=== PATIENT | female | born 1970 | race Hispanic/Latino ===

== ENCOUNTER 2017-05-05 16:09 | Emergency (ER) | payer OTHER ==
[2017-05-05] MEDS ORDERED: Ondansetron HCl/PF 4 MG/2 ML Vial ONE (16:29)
[2017-05-05] MEDS ORDERED: Ketorolac Tromethamine 30 MG/ML VIAL ONE (16:29)
[2017-05-05 16:45] LABS: #Eosinphils 0.3 thou/uL (0.0-0.7); #Lymphocytes 2.6 thou/uL (1.20-3.40); #Monocytes 0.8 thou/uL (0.11-0.59); #Neutrophils 6.9 thou/uL (1.40-6.50); %Basophils 0.4 % (0.0-1.0); %Eosinophils 2.5 % (0.0-10.0); %Lymphocytes 24.7 % (21.0-51.0); %Monocytes 7.3 % (0.0-10.0); Hematocrit 43.1 % (36.0-47.0); Red Blood Cell (RBC) Count 4.56 mill/uL (4.20-5.40); White Blood Cell (WBC) Count 10.5 thou/uL (4.8-10.8)
[2017-05-05 16:50] LABS: Bilirubin Negative (Negative); Glucose, Urine (Dipstick) Negative (Negative); Ketone, Urine Trace mg/dL (Negative)
[2017-05-05 16:51] LABS: Blood, Urine Large (Negative); Nitrite Negative (Negative); Protein, Urine (Dipstick) Negative (Neg-Trace)
[2017-05-05 16:52] LABS: PTT 29.4 SEC (22.9-36.1); Prothrombin Time 13.5 SEC (12.0-14.7)
[2017-05-05 17:03] LABS: Bacteria/HPF Rare-Few HPF (None Seen); Hyaline Casts/LPF 0-3 HYALINE CAST LPF (0-3 Hyaline); Squamous Epithelial 0-3 HPF (0-3); WBC/HPF 0-3 HPF (0-3)
[2017-05-05 17:32] LABS: ALT (SGPT) 15 U/L (8-55); AST (SGOT) 21 U/L (5-34); Alkaline Phosphatase 76 U/L (40-150); Anion Gap 17 mmol/L (10-20); BUN (Urea Nitrogen) 9 mg/dL (7.0-18.7); Bilirubin, Total 0.5 mg/dL (0.2-1.2); CK (CPK) 227 U/L (29-168); Calc. Creatinine Clearance 0 mL/min (70-130); Calcium 9.7 mg/dL (7.8-10.44); Carbon Dioxide 24 mmol/L (22-29); Chloride 105 mmol/L (98-107); Estimated GFR-MDRD 85; Globulin 3.7 g/dL (2.4-3.5)
--- NOTE | 2017-05-05 17:56 | CT ---
CT HEAD NONCONTRAST: 05/05/17 HISTORY: Headache. FINDINGS: No comparison. There is no evidence of acute intracranial hemorrhage or infarct. An oval CSF density mass at the mi dline at the level of the frontal horn to the lateral ventricle is 2.5 x 1.9 cm greatest diameters. No ventricular dilatation is apparent. No mass effect or shift of midline structures. IMPRESSION: No acute intracranial abnormalities are demonstrated. Cystic structure at the midline may represent a cavum septum pellucidum versus a pellucidum cyst. If there are ongoing symptoms, please consider n onemergent MRI of the brain for better characterization. POS: ALVERTO
--- NOTE | 2017-05-05 17:57 | RAD ---
CHEST TWO VIEWS: 05/05/17 HISTORY: Cough. COMPARISON: None. FINDINGS: The lungs are clear. No pneumothorax or effusion. The cardiac silhouette and mediastinal contours ar e within normal limits. No acute osseous abnormality. IMPRESSION: No acute intrathoracic abnormality. POS: OFF
== END 2017-05-05 19:00 | disposition home or self-care (01) ==
LOC: ERS 16:09
DX: J11.1 Influenza due to unidentified influenza virus with other respiratory manifestations (principal); I10 Essential (primary) hypertension
CPT/HCPCS: 70450; 71020; 80053; 81003; 81015; 81025; 82550; 85025; 85610; 85730; 93005; 96361; 96374; 96375; J1885; J2405